=== PATIENT | female | born 1965 | race Caucasian/White ===

== ENCOUNTER → 2017-11-23 | Outpatient (CLI) | payer OTHER | END | disposition home or self-care (01) | LOC: CDC 14:53 | DX: Z01.810 Encounter for preprocedural cardiovascular examination (principal); M79.642 Pain in left hand; M18.12 Unilateral primary osteoarthritis of first carpometacarpal joint, left hand; M72.0 Palmar fascial fibromatosis [Dupuytren] | CPT/HCPCS: 93000 ==